=== PATIENT | female | born 1980 | race Hispanic/Latino ===

== ENCOUNTER 2020-02-25 22:27 | Emergency (ER) | payer SELFPAY | END 2020-02-25 22:50 | LOC: ERS 22:27 | DX: S40.812A Abrasion of left upper arm, initial encounter (principal); S40.811A Abrasion of right upper arm, initial encounter; I10 Essential (primary) hypertension; F41.9 Anxiety disorder, unspecified; X58.XXXA Exposure to other specified factors, initial encounter | CPT/HCPCS: 99283 ==

== ENCOUNTER 2020-06-24 12:46 | Emergency (ER) | payer SELFPAY | END 2020-06-24 13:35 | disposition home or self-care (01) | LOC: ERS 12:46 | DX: F10.129 Alcohol abuse with intoxication, unspecified (principal); I10 Essential (primary) hypertension | CPT/HCPCS: 99284 ==

== ENCOUNTER 2020-08-11 00:43 | Emergency (ER) | payer SELFPAY ==
[2020-08-11] MEDS ORDERED: Lidocaine 1% w/Epinephrine 1:100K 20 ML VIAL ONE (01:12)
[2020-08-11] MEDS ORDERED: Bacitracin 1 PK ONE ×2 (01:50→01:51)
== END 2020-08-11 01:57 | disposition home or self-care (01) ==
LOC: ERS 00:43
DX: S51.012A Laceration without foreign body of left elbow, initial encounter (principal); F41.9 Anxiety disorder, unspecified; W01.198A Fall on same level from slipping, tripping and stumbling with subsequent striking against other object, initial encounter
CPT/HCPCS: 12005

== ENCOUNTER 2020-08-20 16:34 | Emergency (ER) | payer SELFPAY | END 2020-08-20 17:39 | disposition home or self-care (01) | LOC: ERS 16:34 | DX: S41.112D Laceration without foreign body of left upper arm, subsequent encounter (principal); I10 Essential (primary) hypertension; F41.9 Anxiety disorder, unspecified ==

== ENCOUNTER 2023-10-19 20:08 | Emergency (ER) | payer OTHER, SELFPAY ==
[2023-10-19] MEDS ORDERED: Lidocaine 1% PF 5 ML VIAL ONE (20:20)
[2023-10-19] MEDS ORDERED: Boostrix 0.5 ML (Tdap) VIAL (>/=7 yrs of age) ONE (20:21)
== END 2023-10-19 21:02 | disposition home or self-care (01) ==
LOC: ERS 20:08
DX: S61.412A Laceration without foreign body of left hand, initial encounter (principal); F17.210 Nicotine dependence, cigarettes, uncomplicated; W26.0XXA Contact with knife, initial encounter
CPT/HCPCS: 12002; 90471; 90715